=== PATIENT | female | born 1990 | race Two or more races ===

== ENCOUNTER 2024-03-28 19:09 | Emergency (ER) | payer OTHER ==
[~2024-03-28] VITALS: Ht 152.4 cm; Wt 84.8 kg
[2024-03-28] MEDS ORDERED: MACROBID 100 M100 MG (19:34)
[2024-03-28] MEDS ORDERED: PRENATABS FA T1 EACH (19:34)
[2024-03-28 23:20] LABS: PH,URINE 5.5 (5.0-8.0); URINE APPEARANCE Cloudy; URINE BILIRRUBIN Negative (NEGATIVE); URINE BLOOD Moderate; URINE COLOR Yellow; URINE GLUCOSE Negative (NEGATIVE); URINE LEUKOCYTE Moderate; URINE NITRATE Negative; URINE PROTEIN Negative (NEGATIVE); URINE UROBILINOGEN 0.2 E.U./dl
[2024-03-28 23:23] LABS: URINE BACTERIA 8067.3 uL (0.0-1933); URINE EPITHELIAL CELLS 179.8 uL (0.0-38.8); URINE RBC 8.6 uL (0.0-20.8); URINE WBC 110.4 uL (0.0-23.2)
[2024-03-28 23:35] LABS: HEMATOCRIT 33.1 % (36.0-45.00); HEMOGLOBIN 10.9 g/dL (12.0-15.00); MEAN CELL VOLUME 81.4 fL (80.00-100.00); MEAN CORPUSCULAR HEMOGLOBIN 26.9 pg (27.00-32.0); PLATELET COUNT 290 K/uL (150-450); RED BLOOD COUNT 4.07 M/uL (4.00-6.00); RED CELL DISTRIBUTION WIDTH 14.9 % (11.5-14.5)
[2024-03-28 23:44] LABS: URINE KETONE 40 (NEGATIVE)
[2024-03-28 23:46] LABS: URINE CRYSTALS FEW /HPF
[2024-03-28] MEDS ORDERED: AMOX1TAB5 PO (23:53)
[2024-03-28] MEDS ORDERED: PEPCID AC20 MG PO (23:53)
== END 2024-03-29 00:19 | disposition home or self-care (01) ==
LOC: ER 19:11
PROVIDERS: General Practice
DX: O20.9 Hemorrhage in early pregnancy, unspecified (principal); O23.42 Unspecified infection of urinary tract in pregnancy, second trimester; N39.0 Urinary tract infection, site not specified; Z3A.14 14 weeks gestation of pregnancy

== ENCOUNTER 2024-09-21 06:37 | Inpatient (IN) | payer OTHER ==
[~2024-09-21] VITALS: Ht 152.4 cm; Wt 93.0 kg
[2024-09-21] VITALS (11 sets, daily range): BP systolic 112–133; BP diastolic 63–84
[~2024-09-21 06:37] MED LIST: AMOX1TAB5 PO; MACROBID 100 M100 MG; PEPCID AC20 MG PO; PRENATABS FA T1 EACH
[2024-09-21] MEDS ORDERED: RINGERS SOLUTION,LACTATED 1,000 ML IV SCH (08:30)
[2024-09-21] MEDS ORDERED: AMPICILLIN SODIUM 2,000 MG VIAL IV ONE (08:30)
[2024-09-21] MEDS ORDERED: AMPICILLIN SODIUM 1,000 MG VIAL IV SCH (09:00)
[2024-09-21 09:16] LABS: URINE APPEARANCE Turbid; URINE BILIRRUBIN Negative (NEGATIVE); URINE COLOR Yellow; URINE GLUCOSE Negative (NEGATIVE); URINE KETONE Trace (NEGATIVE); URINE LEUKOCYTE Large; URINE NITRATE Negative; URINE PROTEIN Trace (NEGATIVE); URINE UROBILINOGEN 0.2 E.U./dl
[2024-09-21 09:17] LABS: URINE RBC 2.1 uL (0.0-20.8); URINE WBC 999.9 uL (0.0-23.2)
[2024-09-21 09:18] LABS: BASO % 0.3 % (0.1-1.2); EOS # 0.09 (0.04-0.54); EOS % 0.7 % (0.7-7.0); LYMPH # 1.99 (1.18-3.74); LYMPH % 14.6 % (19.3-53.1); MEAN PLATELET VOLUME 11.90 fl (9.4-12.4); MONO # 1.01 (0.24-0.82); MONO % 7.4 % (4.7-12.5); NEUT # 10.35 (1.56-6.13); NEUT % 76.0 % (34.0-71.1); RED CELL DISTRIBUTION WIDTH 15.4 % (11.6-14.4)
[2024-09-21 09:41] LABS: INR 0.97
[2024-09-21 09:57] LABS: URINE BACTERIA > 9821.5 uL (0.0-1933); URINE BLOOD TRACES; URINE CAST 0.87 uL (0.0-1.40); URINE CRYSTALS FEW /HPF; URINE EPITHELIAL CELLS > 201.7 uL (0.0-38.8)
[2024-09-21] MEDS ORDERED: OXYTOCIN 20 UNITS/500ML RL PIGGYBAG IV SCH (12:15)
[2024-09-21] MEDS ORDERED: MORPHINE SULFATE 4 MG/ML CARTRIDGE IV ONE (17:15)
[2024-09-21] MEDS ORDERED: ERYTHROMYCIN BASE OPHT 1GM EACH TUBE OP ONE (20:15)
[2024-09-21] MEDS ORDERED: CHLORHEXIDINE GLUCONATE 120 ML BOTTLE TP SCH (20:45)
[2024-09-21] MEDS ORDERED: OXYTOCIN 1,000 ML IV SCH (20:45)
[2024-09-21] MEDS ORDERED: ACETAMINOPHEN 500 MG GEL..CAP PO PRN (20:45)
[2024-09-22 01:15] LABS: BASO % 0.2 % (0.1-1.2); EOS # 0.01 (0.04-0.54); EOS % 0.0 % (0.7-7.0); LYMPH # 1.10 (1.18-3.74); LYMPH % 3.9 % (19.3-53.1); MEAN PLATELET VOLUME 12.30 fl (9.4-12.4); MONO # 1.85 (0.24-0.82); MONO % 6.6 % (4.7-12.5); NEUT # 24.68 (1.56-6.13); NEUT % 88.3 % (34.0-71.1); RED CELL DISTRIBUTION WIDTH 15.2 % (11.6-14.4)
[2024-09-22 02:18] VITALS: BP 119/78
[2024-09-22] MEDS ORDERED: FAMOTIDINE/PF 20 MG/2 ML VIAL IV ONE (02:30)
[2024-09-22 08:00] VITALS: BP 102/62
[2024-09-22] MEDS ORDERED: PNV,CALCIUM 72/IRON/FOLIC ACID 1 TAB TABLET PO SCH (09:00)
[2024-09-22 16:47] VITALS: BP 130/83
[2024-09-22] MEDS ORDERED: HYDROCORTISONE 2.5% 30 GM TUBE TOP SCH (17:00)
[2024-09-23 03:07] VITALS: BP 111/75
[2024-09-23 09:03] VITALS: BP 111/74
== END 2024-09-23 19:00 | disposition home or self-care (01) | DRG 807 ==
LOC: LDR 06:37 → OB/GYN 18:59
PROVIDERS: ADMIT Obstetrics & Gynecology; ATTEND Obstetrics & Gynecology
PROC: 10E0XZZ Delivery of Products of Conception, External Approach (ICD-10-PCS; principal; 2024-09-21)
PROC: 4A1HXCZ Monitoring of Products of Conception, Cardiac Rate, External Approach (ICD-10-PCS; 2024-09-21)
DX: O80 Encounter for full-term uncomplicated delivery (principal); Z37.0 Single live birth; Z3A.39 39 weeks gestation of pregnancy